=== PATIENT | female | born 2000 | race Caucasian/White ===

== ENCOUNTER 2024-04-15 18:44 | Emergency (ER) | payer OTHER, SELFPAY ==
--- NOTE | ~2024-04-15 | XR_ITS ---
EXAMINATION: XR ABDOMEN KUB CLINICAL INDICATION: Rule out obstruction. Abdominal distention. COMPARISON: None available. TECHNIQUE: AP view of the abdomen performed on 2 images. FINDINGS: Right upper quadrant staple from prior cholecystectomy noted. The bowel gas pattern is normal with no evidence of ileus or obstruction. No unusual soft tissue calcifications are noted. The bones are unremarkable. Lung bases bilaterally are clear. XR/XR KUB IMPRESSION: No evidence of bowel obstruction or ileus. Electronically signed by: Alyce Rodriguez MD 04/15/2024 11:29 PM EDT
--- NOTE | 2024-04-15 18:52 | ED_ITS ---
HPI - Abdominal Pain General Chief Complaint: Abdominal Pain Stated Complaint: Sweating ?Liver pain Time Seen by Provider: 04/15/24 22:32 Source: patient Mode of arrival: ambulatory Limitations: no limitations History of Present Illness ED Provider: Dr. Sandoval HPI narrative: patient is a 23yo female with history of cholecystectomy with associated hepatitis and pancreatitis who has had complication of her surgery since. Patient with a number of complaints including ear pain dizziness, constipation and abdominal pain Related Data Previous Rx's ?Medication ?Instructions ?Recorded lactulose 20 gram/30 mL oral 20 g (30 mL) PO TID #2,880 mL 04/16/24 solution psyllium husk (with sugar) 3.4 1 tsp PO DAILY #575 grams 04/16/24 gram/12 gram oral powder (Metamucil (with sugar)) Allergies Allergy/AdvReac Type Severity Reaction Status Date / Time No Known Allergies Allergy Verified 04/15/24 18:57 [No Known Allergies*] Review of Systems Review of Systems Yes all other systems are reviewed and are negative Denies Sensory deficit (Neuro) [facility] Social History Social History Smoked in Last 30 Days: Yes Use of substances other than those prescribed or required for medical reasons: No Advance Directives: No Advance Directives Information Provided: No Do you have a plan to hurt others: No Plan Physical Exam ED Vital Signs: Vital Signs - 24 hr 04/15/24 18:54 04/15/24 22:28 04/16/24 00:00 Temperature 98.8 F 98.2 F 98.3 F Pulse Rate 95 74 79 Respiratory Rate 18 14 16 Blood Pressure 133/94 H 143/91 H 129/78 Pulse Oximetry 97 100 98 Oxygen Delivery Method Room Air Room Air Room Air BMI result Body Mass Index 44.3 Const Other: obese female in no acute distress Nutritional Appearance: obese Orientation/consciousness: oriented to person and patient oriented x3 Limitations: no limitations HENMT Other: bilateral cerumen impactions Head: Yes normal to inspection Ears: external ears normal General nose exam: Normal external nose present Mouth: Normal oral and palatal mucosa present and oropharynx normal Throat: Yes posterior oropharynx normal Eyes General: appearance normal, both eyes and all related structures Neck Neck: Yes normal visual inspection Chest Chest palpation & inspection: normal inspection of the chest Resp Auscultation: clear to auscultation bilaterally Cardio Jugular venous distension: no JVD Rate: regular rate Rhythm: regular rhythm Heart sounds: S1 normal heart sound present and S2 normal heart sound present GI Other: obese nontender abdomen General: Yes no CVA tenderness Back/Spine/Pelvis Back: no CVA tenderness Skin Other: cystic lesion to back of head, no evidence of infection Neuro General: oriented to person and patient oriented x3 Cranial nerves: Yes CN's II-XII intact bilaterally Motor exam (neuro): 5/5 motor strength present throughout Sensory Exam: No Sensory deficit (Neuro) Extrem General: Yes normal to inspection Psych Appearance: grossly normal Course Course Course Narrative: This is a Rapid Medical Exam performed in triage by Brandy Gold PA-C. Full HPI, ROS and PE to be performed by primary ED provider. 23 yo F w/PMHx cholecystectomy in Dec at [facility] complcated by pancreatitis & ?liver infection presenting to the ED c/o diaphoresis & epigastric/LUQ abdominal pain & nausea/ vomiting x few days. reports decreased PO intake & constipation w/o BM x 4 days. Also reports head injury 1 mos ago with continued pain to area PE: +scalp scar with central fluctuance, abdomen soft w/RUQ & epiagstric ttp, no rebound or guarding Plan: labs,UA Reevaluation(s) Reevaluation #1: No evidence of hepatitis, pancreatitis, or UTI. KUB shows some stool burden will dc home on lactulose. In addition, patient with cerumen impactions. Time: 00:30 Reevaluation #2: Patient just tested positive for chlamydia will treat with doxy for 10 days Time: 00:41 Medical Decision Making Differential Diagnosis Differential Diagnoses: The differential diagnosis associated with the presentation includes (hepatitis, pancreatitis, constipation, cerumen impaction) Admission/Observation Consideration of admission/observation: Escalation of care including admission/observation considered (upon arrival patient considered for admission) Lab Data 04/15/24 19:12 04/15/24 19:12 Labs: Lab Results 04/15/24 04/15/24 04/15/24 Range/Units 19:12 22:30 23:00 WBC 10.0 (4.8-10.8) X10*3/uL RBC 4.57 (4.20-5.50) X10*6/uL Hgb 13.8 (12.0-16.0) g/dl Hct 40.5 (37.0-47.0) % MCV 88.6 (80.0-98.0) fL MCH 30.2 (27.0-33.0) pg MCHC 34.1 (31.0-35.0) g/dl RDW 12.1 (11.0-16.0) % Plt Count 401 H (160-400) X10*3/uL MPV 10.0 (9.4-12.3) fL Immature Gran % (Auto) 0.8 H (0.0-0.4) % Neut % (Auto) 49.8 (45-73) % Lymph % (Auto) 38.3 (20-40) % [place] % (Auto) 6.4 (2-11) % Eos % (Auto) 3.8 (0-4) % Baso % (Auto) 0.9 (0-2) % Lymph # (Auto) 3.8 (1.2-4.9) X10*3/uL [place] # (Auto) 0.6 (0.1-1.2) X10*3/uL Eos # (Auto) 0.4 (0.0-0.4) X10*3/uL Baso # (Auto) 0.1 (0.0-0.2) X10*3/uL Abs Immat Gran (auto) 0.08 H (0.00-0.03) X10*3/uL Absolute Neuts (auto) 5.0 (2.0-8.3) x10*3/uL Absolute Nucleated RBC 0.000 (0.0-0.012) X10*3/uL Nucleated RBC % (auto) 0.0 (0.0-0.2) /100WBC Sodium 139 (135-145) mmol/L Potassium 3.9 (3.3-5.1) mmol/L Chloride 107 (96-108) mmol/L Carbon Dioxide 22 (22-29) mmol/L Anion Gap 14 (12-20) BUN 10 (9-16) mg/dL Creatinine 0.83 (0.5-1.4) mg/dL Estim Creat Clear Calc 126.7 Estimated GFR > 60 Random Glucose 95 (60-115) mg/dL Calcium 9.4 (8.4-10.2) mg/dL Magnesium 1.9 (1.6-2.6) mg/dL Total Bilirubin 0.2 (0.0-1.0) mg/dL Direct Bilirubin < 0.2 (0.0-0.5) mg/dL AST 13 (5-31) U/L ALT 14 (0-31) U/L Alkaline Phosphatase 55 (39-117) U/L Total Protein 7.4 (6.5-8.0) g/dL Albumin 4.0 (3.5-5.0) g/dL Lipase 29 (8-78) U/L Urine Color Yellow Urine Appearance Cloudy Urine pH 8.5 (5.0-9.0) Ur Specific Edgar 1.025 (1.005-1.025) Urine Protein Negative (Neg-Trace) mg/dL Urine Glucose (UA) Negative (Negative) mg/dL Urine Ketones Trace (Negative) mg/dL Urine Blood Negative (Negative) Urine Nitrite Negative (Negative) Ur Leukocyte Esterase Small (1+) H (Negative) Urine RBC 0-2 (0-2) /HPF Urine WBC 6-10 H (0-5) /HPF Ur Squamous Epith Cells 3-5 (0-2) /HPF Urine Bacteria None Seen (None Seen) Hyaline Casts 0-2 (0-2) /LPF Urine Test NEGATIVE (NEGATIVE) Chlam trachomat DNA PCR DETECTED A (Not Detect.) N.gonorrhoeae DNA (PCR) NOT DETECTED (Not Detect.) Independent Interpretation I performed an independent interpretation of an: Plain X-Ray (KUB: no obstruction, constipation) Tests considered The following testing was considered but not selected: CT of abd pelvis considered Prescription Management I considered prescription management with: Antibiotic (no UTI will not give abx) Social Determinants Patient?s care significantly limited by Social Determinants of Health including: Low income Medications Administered Discontinued Medications Generic Name Dose Route Start Last Admin Trade Name Freq PRN Reason Stop Dose Admin Ondansetron HCl 4 mg 04/15/24 22:39 04/15/24 23:14 Ondansetron Odt 4 Mg Tab.Rapdis TRANSLINGU 04/15/24 22:40 4 mg ONCE ONE Administration Discharge Plan Discharge Clinical Impression: Constipation, Bilateral impacted cerumen Patient Disposition: Home, Self-Care Instructions: Constipation (ED) Additional Instructions: take the lactulose until the stool is liquid then start metamucil Prescriptions: New lactulose 20 gram/30 mL solution 20 g PO TID Qty: 2880 0RF Rx Instructions: take three times a day until stool is liquid Metamucil (with sugar) 3.4 gram/12 gram powder 1 tsp PO DAILY Qty: 575 0RF Referrals: Physician,None [Primary Care Provider] - 5 days Print Language: Singaporean
[2024-04-15 18:54] VITALS: BP 133/94; PULSE 95; RESP 18; TEMP 37.1; O2SAT 97; BMI 44.3
[2024-04-15 19:23] LABS: MANUAL DIFF FLAG NO
[2024-04-15 19:41] LABS: Basophils Absolute Auto 0.1 X10*3/uL (0.0-0.2); Basophils Percent Auto 0.9 % (0-2); Eosinophils Absolute Auto 0.4 X10*3/uL (0.0-0.4); Eosinophils Percent Auto 3.8 % (0-4); Hematocrit 40.5 % (37.0-47.0); Hemoglobin 13.8 g/dl (12.0-16.0); Imm Gran Abs Auto 0.08 X10*3/uL (0.00-0.03); Imm Gran Pct Auto 0.8 % (0.0-0.4); Lymphocytes Absolute Auto 3.8 X10*3/uL (1.2-4.9); Lymphocytes Percent Auto 38.3 % (20-40); Mean Corpuscular HGB Conc 34.1 g/dl (31.0-35.0); Mean Corpuscular Hemoglobin 30.2 pg (27.0-33.0); Mean Corpuscular Volume 88.6 fL (80.0-98.0); Monocytes Absolute Auto 0.6 X10*3/uL (0.1-1.2); Monocytes Percent Auto 6.4 % (2-11); Neutrophils Percent Auto 49.8 % (45-73); Platelet Count 401 X10*3/uL (160-400); Red Blood Count 4.57 X10*6/uL (4.20-5.50); Red Cell Distribution Width 12.1 % (11.0-16.0)
[2024-04-15 20:02] LABS: Alanine Aminotransferase 14 U/L (0-31); Alkaline Phosphatase 55 U/L (39-117); Anion Gap 14 (12-20); Aspartate Amino Transferase 13 U/L (5-31); Bilirubin Direct < 0.2 mg/dL (0.0-0.5); Bilirubin Total 0.2 mg/dL (0.0-1.0); Blood Urea Nitrogen 10 mg/dL (9-16); Calcium 9.4 mg/dL (8.4-10.2); Carbon Dioxide 22 mmol/L (22-29); Chloride 107 mmol/L (96-108); Creatinine Clr Calc Pharmacy 126.7; Estimated Glomerular Filt Rate > 60; Glucose Random 95 mg/dL (60-115); Lipase 29 U/L (8-78); Magnesium 1.9 mg/dL (1.6-2.6); Potassium 3.9 mmol/L (3.3-5.1); Sodium 139 mmol/L (135-145); Total Protein 7.4 g/dL (6.5-8.0)
[2024-04-15 22:28] VITALS: BP 143/91; PULSE 74; RESP 14; TEMP 36.8; O2SAT 100
[2024-04-15 22:37] LABS: Appearance Urine Cloudy; Color Urine Yellow; Glucose Urine UA Negative (Negative); Leukocyte Esterase Urine Small (1+) (Negative); Nitrite Urine Negative (Negative); PH 8.5 (5.0-9.0); Specific Gravity - Urine 1.025 (1.005-1.025); UMIC TRIGGER UACC YES; Urine Blood Negative (Negative); Urine Ketones Trace mg/dL (Negative); Urine Protein Negative (Neg-Trace)
[2024-04-15 22:38] LABS: UPreg QC Valid YES; Urine Pregnancy NEGATIVE (NEGATIVE)
[2024-04-15 22:42] LABS: Bacteria Urine None Seen (None Seen); Hyaline Casts Urine 0-2 /LPF (0-2); RBC Urine 0-2 /HPF (0-2); UACC Culture Trigger YES
[2024-04-15] MEDS: Ondansetron ODT 4 MG TAB.RAPDIS TRANSLINGU (23:14)
--- NOTE | 2024-04-15 23:16 | PC.NURSE ---
Pt a&ox4, no signs of distress. Pt medicated per mar Plan of care ongoing.
[2024-04-16] VITALS: BP 129/78; PULSE 79; RESP 16; TEMP 36.8; O2SAT 98
[2024-04-16 00:38] LABS: CT PCR DETECTED (Not Detect.); NG PCR NOT DETECTED (Not Detect.)
[2024-04-16 00:55] VITALS: BP 129/78; PULSE 79; RESP 16; TEMP 36.8; O2SAT 98
--- NOTE | 2024-04-16 01:01 | PC.NURSE ---
Pt refusing to wait for med Pts reports ride is here. Plan of care ongoing.
== END 2024-04-16 01:04 | disposition home or self-care (01) ==
PROVIDERS: Physician Assistant; Emergency Provider Emergency Medicine
DX: K59.00 Constipation, unspecified (principal); H61.23 Impacted cerumen, bilateral; A74.9 Chlamydial infection, unspecified; R10.9 Unspecified abdominal pain
CPT/HCPCS: 36415; 74018; 80048; 80076; 81001; 81025; 83690; 83735; 85025; 87086; 87491; 87591; 99283; 99284